=== PATIENT | female | born 1960 ===

== ENCOUNTER 2022-11-26 09:37 | Outpatient (REF) | payer OTHER, SELFPAY ==
--- NOTE | 2022-11-26 13:00 | MHC.AU.HA1 ---
Hearing Aid Evaluation Date of Visit: 11/26/22 Historical Information: Description of Hearing: audiogram dated 11/26/22 reveals normal hearing 250-1500Hz sloping to mild to moderate sensorineural hearing loss 2000-8000Hz in both ears. Normal type A tympanograms. Summary: The patient reports constant bilateral tinnitus since April 2022. The tinnitus does not interfere with her ability to function or sleep but she finds it very annoying. She has no significant concerns with her hearing. We spent time discussing the patient's hearing loss and impact on communication and tinnitus. I recommend hearing aids and the patient agrees with this plan. We also discussed tinnitus masking strategies. Reviewed basic hearing aid maintenance. Patient may be interested in connectivity to her iPhone. Also discussed adding a tinnitus masking program if needed. Will request medical clearance from PCP. Hearing Aid Prescription: Based on the individual?s shared listening needs, communication environments, dexterity, desire for connectivity, and personal preferences, the following prescription for amplification has been made: Right ear: Adams, Model, Color: Oticon More 2 miniRITE-R, terracotta (#94) Battery Size: Rechargeable Advertising Executive/Slim Tube: 2/60 Type of Earmold/Dome/CShell/SlimTip: 8mm OpenBass Left ear: Left ear prescription to be same as Right Hearing Aid above: Model Adams, Color: Oticon More 2 miniRITE-R, terracotta (#94) Battery Size: Rechargeable Advertising Executive/Slim Tube: 2/60 Type of Earmold/Dome/CShell/SlimTip: 8mm OpenBass Plan of Care: Patient wishes to purchase hearing aids as prescribed Action Taken/Action Needed: Medical Clearance to be requested from PCP/ENT Hearing Instrument Fitting to be scheduled when materials arrive Primary Diagnosis: H90.3 Bilateral Sensorineural Hearing Loss Secondary Diagnosis: H93.13 Tinnitus, Bilateral Signature: Provider: Enriqueta Waldron, [facility]
== END 2022-11-26 09:38 | disposition home or self-care (01) ==
LOC: HO.SH 09:37
PROVIDERS: Visit Provider Nurse Practitioner Primary Care
DX: H90.3 Sensorineural hearing loss, bilateral (principal)
CPT/HCPCS: 92557; 92567; 92587; 92591

== ENCOUNTER 2022-12-29 14:27 | Outpatient (REF) | payer OTHER, SELFPAY ==
--- NOTE | 2022-12-29 16:06 | MHC.AU.HA2 ---
Hearing Instrument Fitting- Adult- Binaural Date of Visit: 12/29/22 Hearing Instruments Dispensed: Right Ear: Make, Model, Color, Serial Number: Oticon More 2 miniRITE-R SN: [id number] Color: Damion (#94) Pellet Press Operator Repair Warranty: 12/26/2025 Pellet Press Operator Loss and Damage Warranty: 12/26/2025 [facility] Service Plan: 12/30/2023 Battery Size: Rechargeable Design Printer Balloon/Slim Tube: 2/60 Earmold/Dome/CShell/SlimTip: 8mm OpenBass Type of Wax Guard: miniFit Left Ear: Make, Model, Color, Serial Number: Oticon More 2 miniRITE-R SN: [id number] Color: Damion (#94) Pellet Press Operator Repair Warranty: 12/26/2025 Pellet Press Operator Loss and Damage Warranty: 12/26/2025 [facility] Service Plan: 12/30/2023 Battery Size: Rechargeable Design Printer Balloon/Slim Tube: 2/60 Earmold/Dome/CShell/SlimTip: 8mm OpenBass Type of Wax Guard: miniFit Accessories/Assistive Technology: Zipper Repairer SN: [id number] Warranty: 12/26/2025 Summary of Fitting: Arely was accompanied by her daughter. Performed feedback analyzer and real ear measurements. Comfortable at real ear settings. Discussed care, use, and rechargeability including manually turning on/off, volume control use, and changing domes and wax guards. Arely was hesitant toward the hearing aids but willing to try. Discussed importance of consistent use and acclimatization period. Did not pair to cellphone at this time. Arely and her daughter reported that they can connect them at home if needed. Also discussed tinnitus but did not program tinnitus masker at this time. Arely will try the hearing aids alone first to determine their impact on her tinnitus. Will discuss the need for a masker at the follow up. Recommendations: A hearing instrument follow-up was scheduled. Diagnosis Code(s): Primary Diagnosis: H90.3 Bilateral Sensorineural Hearing Loss Secondary Diagnosis: H93.13 Tinnitus, Bilateral Signature: Provider: Francine Bravo, [facility]
== END 2022-12-29 14:28 | disposition home or self-care (01) ==
LOC: HO.HAP 14:27
PROVIDERS: Visit Provider Family Medicine
DX: Z46.1 Encounter for fitting and adjustment of hearing aid (principal); H90.3 Sensorineural hearing loss, bilateral
CPT/HCPCS: V5011; V5020; V5160; V5261